=== PATIENT | male | born 1960 | race Caucasian/White ===

== ENCOUNTER 2020-06-29 12:32 | Outpatient (REF) | payer BC, SELFPAY ==
[2020-06-29 14:10] LABS: Alanine Aminotransferase 41 U/L (0-40); Albumin Level 4.6 g/dL (3.5-5.0); Alkaline Phosphatase 55 U/L (39-117); Aspartate Amino Transferase 27 U/L (5-37); Bilirubin Direct 0.3 mg/dL (0.0-0.5); Bilirubin Total 0.6 mg/dL (0.0-1.0); Iron 119 mcg/dL (45-160); Percent Iron Saturation 39 % (15-50); Total Iron Binding Capacity 308 mcg/dL (228-428); Total Protein 7.1 g/dL (6.5-8.0); Unsaturated Iron Binding 189 ug/dL
[2020-06-29 14:32] LABS: Ferritin 194 ng/mL (20-250)
[2020-07-01 07:56] LABS: HBc Num1 0.08 S/CO (0.00-0.79); HBsAGNum1 0.24 S/CO (0.00-0.99); Hepatitis B Core Antibody Nonreactive (Nonreactive); Hepatitis B Surface Antigen Negative (Negative)
[2020-07-01 08:12] LABS: HBS Num1 3.44 mIU/mL (0-7.99); ~HepC Num1 0.06 S/CO (0.00-0.79); ~Hepatitis A Antibody IgM Nonreactive (Nonreactive); ~Hepatitis B Surface Antibody NONREACTIVE (Nonreactive); ~Hepatitis C Antibody Nonreactive (Nonreactive)
[2020-07-01 14:48] LABS: Mitochondrial Antibodies NEGATIVE (NEGATIVE)
[2020-07-02 00:07] LABS: Anti Nuclear Antibody Screen POSITIVE (NEGATIVE)
[2020-07-03 15:42] LABS: Smooth Muscle Antibody <20 U (<20)
== END 2020-06-29 12:33 | disposition home or self-care (01) ==
LOC: HO.10HDL 12:32
PROVIDERS: Visit Provider Internal Medicine Gastroenterology
DX: R79.89 Other specified abnormal findings of blood chemistry (principal)
CPT/HCPCS: 36415; 80076; 82728; 83540; 86038; 86039; 86255; 86256; 86704; 86706; 86709; 86803; 87340

== ENCOUNTER 2020-07-14 08:19 | Outpatient (REF) | payer BC, SELFPAY ==
--- NOTE | 2020-07-14 | US_ITS ---
EXAMINATION: US ABDOMEN COMPLETE CLINICAL INFORMATION: Elevated LFTs. COMPARISON: None TECHNIQUE: Real-time imaging of the abdominal viscera. FINDINGS: PANCREAS: The head and body the pancreas are normal. The tail is not well visualized due to bowel gas. ABDOMINAL AORTA: The proximal, mid, and distal segments are normal in caliber. INFERIOR VENA CAVA: Visualized portions are normal. LIVER: Normal. The liver is normal in size. The liver contour is normal. Parenchymal echogenicity is normal. No focal hepatic lesion. There is no intrahepatic biliary duct dilatation seen. GALLBLADDER: Normal. The gallbladder is physiologically distended without evidence of stones, sludge, polyps, wall thickening or pericholecystic fluid. COMMON BILE DUCT: Normal in caliber measuring 0.6 cm in diameter. RIGHT KIDNEY: There is a 3.1 x 2.9 x 2.5 cm cyst exophytic to the medial midpole. No hydronephrosis or renal calculi. The kidney measures 11.0 cm in maximum dimension. LEFT KIDNEY: Normal. No hydronephrosis. No renal calculi or focal parenchymal lesions. The kidney measures 11.0 cm in maximum dimension. SPLEEN: Normal. The spleen measures 11.5 cm in maximum dimension. FREE FLUID: None. US/US abdomen complete IMPRESSION: Normal-appearing liver and gallbladder. Limited visualization of the pancreas. 3 cm right renal cyst.
== END 2020-07-14 08:20 | disposition home or self-care (01) ==
LOC: HO.US 08:19
PROVIDERS: PCP Internal Medicine; Visit Provider Internal Medicine Gastroenterology
DX: R79.89 Other specified abnormal findings of blood chemistry (principal)
CPT/HCPCS: 76700

== ENCOUNTER 2022-09-21 12:30 | Day surgery (SDC) | payer BC, SELFPAY ==
[2022-09-21 09:25] VITALS: BMI 28.1
[2022-09-21 12:37] VITALS: BP 110/77; PULSE 78; RESP 20; TEMP 36.1; O2SAT 97
[2022-09-21] MEDS: Lactated Ringers 1,000 ML 50 ML IVCONT (13:04)
--- NOTE | 2022-09-21 13:06 | HO.ANESPROP2 ---
HPI - Anesthesia Eval Consult details Narrative: 62 yo male patient for Colonoscopy PMF Active Problems Active Problems: Diagnosed with PFO 10-15yrs ago. Asymptomatic except for initial presentation of 'funny feeling'. Was initially treated with Plavix but changed to baby aspirin. Taking religiosly. Last dose 1 week ago. Stopped for procedure. Same as for previous procedures. No untoward effects Past Medical History Medical History History of transesophageal echocardiography (PEDRO) Normal esophagogastroduodenoscopy (EGD) PFO (patent foramen ovale) Family History Family history of problems with anesthesia: No Surgical History Surgical History History of esophagogastroduodenoscopy Hx of colonoscopy Hx of tonsillectomy Hx of vasectomy S/P adenoidectomy History of Problems with Anesthesia: No Social History Social History Patient Tobacco Use Status: Never used Tobacco Are you DNR?: No Advance Directives: No Advance Directives Information Provided: Yes Recently lost weight without trying: No Nutrition Risks: No Nutritional Risk Meds Allergies Allergy/AdvReac Type Severity Reaction Status Date / Time No Known Allergies Allergy Verified 09/20/22 14:14 Active Medications: Current Medications Lactated Ringer's (Lr) 1,000 mls @ 50 mls/hr IVCONT .Q20H ALENA Last Admin: 09/21/22 13:04 Dose: 50 mls/hr Home Medications Medication Instructions Recorded Confirmed Last Taken Type aspirin 81 mg capsule 81 mg PO DAILY 09/20/22 09/20/22 Unknown History atorvastatin 10 mg tablet 1 tab PO DAILY 09/20/22 09/20/22 Unknown History glucosamine sulfate 500 mg tablet 500 mg PO BID 09/20/22 09/20/22 Unknown History (Glucosamine) multivitamin 1 tab PO DAILY 09/20/22 09/20/22 Unknown History Exam Exam Date and Time: September 21, 2022 1306 Height,Weight and Vital Signs: Height 5 ft 11 in Weight 91.626 kg Last Vital Signs Temp 97 F 09/21/22 12:37 Pulse 78 09/21/22 12:37 Resp 20 02/15/23 12:37 BP 110/77 09/21/22 12:37 Pulse Ox 97 09/21/22 12:37 O2 Del Method 09/21/22 12:37 Airway Mallampati Class: II TM Dist: >3cm Neck ROM: Full Loose/Missing/Broken Teeth: No (Crowns intact) Heart: RRR Lungs: CTAB Assessment and Plan Assessment Anesthesia Assessment: Anesthesia Plan Discussed and Chart Reviewed Final Anesthetic Review Family History of Problems with Anesthesia: No History of Problems with Anesthesia: No NPO: Yes ASA Class: II Final Preanesthetic Review: No Changes in Pt Med Stat, Meds/Allgs Chart Reviewed, Consent Obtained/Reviewed and Anes Risks/Benef Reviewed Patient Risk: Intermediate Procedure Risk: Low Assessment/Block/Sedation in SS: Assess/Block/Sedation-SS Anesthetic Plan Anesthetic Plan: MAC: Disposition: Standard PACU
--- NOTE | 2022-09-21 13:31 | MHC.SHP ---
Pre-Procedural Eval Section A Date of Service: 09/21/22 The patient is an INPATIENT: No Changes since office visit: Yes Cold of Flu in the past 2 weeks, Yes New Medical Problems, Yes Changes in Medication and Yes Patient answered all questions The History & Physical has been completed within 30 days and I have reviewed it.: No Section B Chief Complaint: screening Allergies: Allergies Allergy/AdvReac Type Severity Reaction Status Date / Time No Known Allergies Allergy Verified 09/20/22 14:14 Plan I have reviewed the history and physical and performed a pertinent physical examination on my patient. No changes have occurred unless specified. Time Spent With Patient Time: Total time managing care of this patient today ____ minutes.
--- NOTE | 2022-09-21 14:12 | P.BOP_ITS ---
Brief Operative Note Date of Service: 09/21/22 Pre-op diagnosis: screening Post-op diagnosis: same Procedure: colonoscopy Surgeon: Jonathan Navarro Anesthesia: MAC Was an Senior Technical Analyst used for this Procedure?: No Estimated blood loss (mL): 2 Pathology: other Condition: stable Disposition: PACU
[2022-09-21 14:15] VITALS: BP 108/70; PULSE 83; RESP 13; TEMP 36.4; O2SAT 94
[2022-09-21 14:31] VITALS: BP 112/74; PULSE 74; RESP 18; TEMP 36.1; O2SAT 96
--- NOTE | 2022-09-22 01:13 | OP_ITS ---
SURGEON: Jonathan Navraro MD INDICATIONS: Colon cancer screening. PREOPERATIVE DIAGNOSIS: POSTOPERATIVE DIAGNOSIS: PROCEDURE PERFORMED: ESTIMATED BLOOD LOSS: COMPLICATIONS: ANESTHESIA: Monitored anesthesia care. ASSISTANTS: SPECIMENS: PROCEDURE: Colonoscopy to the terminal ileum with snare polypectomy and biopsy. PROCEDURE DESCRIPTION: The procedure was performed on 09/21/2022. A history and physical performed. The risks and benefits of the procedure were explained to the patient. Informed consent was obtained. The patient was placed in the left lateral decubitus position. A digital rectal exam was performed and was found to be normal. The Olympus pediatric video colonoscope was introduced into the rectum and advanced to the cecum without difficulty. The cecum was identified by transillumination, palpation, and identification of ileocecal valve. Examination was performed. The scope was removed. He tolerated the procedure well and was taken to the recovery area in stable condition. FINDINGS: The terminal ileum was normal. In the cecum was an 8 mm polyp, which was removed with a hot snare and recovered via suction. A second polyp in the right colon was also snared. This measured approximately 5 to 6 mm. In the hepatic flexure was a less than 5 mm polyp, which was removed with biopsy forceps. No other polyps were identified. There was scattered diverticulosis throughout the colon. Retroflexed examination was normal. The quality of the prep was good. IMPRESSION: Colon polyps. RECOMMENDATIONS: Follow up the biopsy results. MD UMANG Bullard/RADHA / [id number]
== END 2022-09-21 15:07 | disposition home or self-care (01) ==
PROVIDERS: PCP Internal Medicine; Visit Provider Internal Medicine Gastroenterology
PROC: 0DJD8ZZ Inspection of Lower Intestinal Tract, Via Natural or Artificial Opening Endoscopic (ICD-10-PCS; CPT 45378; principal; 2022-09-21 13:30)
DX: Z12.11 Encounter for screening for malignant neoplasm of colon (principal); Z86.010 Personal history of colon polyps; D12.0 Benign neoplasm of cecum; D12.3 Benign neoplasm of transverse colon; D12.4 Benign neoplasm of descending colon; K57.30 Diverticulosis of large intestine without perforation or abscess without bleeding; Q21.12 Patent foramen ovale; Z86.73 Personal history of transient ischemic attack (TIA), and cerebral infarction without residual deficits; Z79.82 Long term (current) use of aspirin; Z79.899 Other long term (current) drug therapy
CPT/HCPCS: 45385; 45380; 88305